=== PATIENT | male | born 1990 | race Caucasian/White ===

== ENCOUNTER 2017-03-03 21:20 | Emergency (ER) | payer MEDICAID, OTHER, SELFPAY ==
[~2017-03-03] VITALS: Ht 177.8 cm; Wt 65.4 kg
[2017-03-04] MEDS ORDERED: SODIUM CHLORIDE 0.9% 1,000ML IVBOLUS ONE
[2017-03-04] MEDS ORDERED: ONDANSETRON 2MG/ML, 2ML IVPush ONE
[2017-03-04] MEDS ORDERED: MORPHINE SULFATE 4 MG/ML, 1ML IVPush PRN
[2017-03-04 00:10] LABS: MICROSCOPIC INDICATED
[2017-03-04 00:25] LABS: BASOPHILS # (AUTO) 0.04 x10^3/uL (0-0.1); BASOPHILS % (AUTO) 1 % (0-1); EOSINOPHILS # (AUTO) 0.21 x10^3/uL (0-0.4); EOSINOPHILS % (AUTO) 2 % (1-7); LYMPHOCYTES # (AUTO) 1.57 x10^3/uL (1-3.4); LYMPHOCYTES % (AUTO) 18 % (22-44); MD NO; MEAN CORPUSCULAR HEMOGLOBIN 31.8 pg (27.5-34.5); MEAN CORPUSCULAR HGB CONC 33.2 g/dL (33.2-36.2); MEAN CORPUSCULAR VOLUME 95.6 fL (81-97); MEAN PLATELET VOLUME 8.4 fL (7.4-10.4); MONOCYTES # (AUTO) 0.98 x10^3/uL (0.2-0.8); MONOCYTES % (AUTO) 11 % (2-9); NEUTROPHILS % (AUTO) 69 % (42-75); PLATELET COUNT 197 x10^3/uL (130-400); RED BLOOD COUNT 4.44 x10^6/uL (4.38-5.82); RED CELL DISTRIBUTION WIDTH 14.4 % (9.4-14.8)
[2017-03-04 00:38] LABS: ALBUMIN 2.7 g/dL (3.4-5.0); ANION GAP 4 mmol/L (5-15); CALCIUM 8.1 mg/dL (8.5-10.1); CHLORIDE 109 mmol/L (98-107); CREATININE 0.97 mg/dL (0.7-1.3)
[2017-03-04] MEDS ORDERED: MORPHINE SULFATE 4 MG/ML, 1ML ONE (00:44)
[2017-03-04] MEDS ORDERED: ONDANSETRON 2MG/ML, 2ML ONE (00:44)
[2017-03-04] MEDS ORDERED: OMNIPAQUE 350 MG/ML, 100ML BOTTLE ONE (00:58)
[2017-03-04 02:10] VITALS: BP 100/65
== END 2017-03-04 02:12 | disposition home or self-care (01) ==
LOC: ED 03-04 02:06
DX: S39.012A Strain of muscle, fascia and tendon of lower back, initial encounter (principal); W19.XXXA Unspecified fall, initial encounter; Y93.51 Activity, roller skating (inline) and skateboarding; Y99.8 Other external cause status; Y92.89 Other specified places as the place of occurrence of the external cause
CPT/HCPCS: 36415; 74177; 80048; 81001; 82040; 85025; 96361; 96374; 96375; 99285; J2405; J7030; Q9967

== ENCOUNTER 2017-06-06 20:24 | Emergency (ER) | payer MEDICAID, OTHER ==
[~2017-06-06] VITALS: Ht 182.9 cm; Wt 68.8 kg
[2017-06-06] MEDS ORDERED: ONDANSETRON ODT 4 MG ONE (20:53)
[2017-06-06] MEDS ORDERED: MAALOX/HYOSCYAMINE/LIDOCAINE 45 ML BTL ONE (20:53)
[2017-06-06] MEDS ORDERED: MAALOX/HYOSCYAMINE/LIDOCAINE 45 ML BTL PO ONE (21:00)
[2017-06-06] MEDS ORDERED: ONDANSETRON ODT 4 MG PO ONE (21:00)
[2017-06-06 21:46] VITALS: BP 106/53
== END 2017-06-06 21:53 | disposition home or self-care (01) ==
LOC: ED 21:47
DX: K29.00 Acute gastritis without bleeding (principal)
CPT/HCPCS: 99283; Q0162

== ENCOUNTER 2017-06-16 15:30 | Emergency (ER) | payer MEDICAID ==
[~2017-06-16] VITALS: Ht 195.6 cm; Wt 66.8 kg
[2017-06-16 15:31] VITALS: BP 111/71
== END 2017-06-16 17:23 | disposition home or self-care (01) ==
LOC: ED 17:05
DX: S60.221A Contusion of right hand, initial encounter (principal); Y93.89 Activity, other specified; Y92.89 Other specified places as the place of occurrence of the external cause; Y99.8 Other external cause status; Z88.1 Allergy status to other antibiotic agents; X58.XXXA Exposure to other specified factors, initial encounter
CPT/HCPCS: 99284